=== PATIENT | male | born 1975 | race Caucasian/White ===

== ENCOUNTER 2018-07-21 14:54 | Emergency (ER) | payer OTHER ==
[2018-07-21] MEDS: ASPIRIN 81 MG TAB PO (15:29)
[2018-07-21 15:47] LABS: ADD MAN DIFF? NO; BASOPHIL # 0.1 10^3/ul (0.0-0.1); BASOPHILS % 0.8 % (0.0-2.0); EOSINOPHILS # 0.1 10^3/ul (0.0-0.5); EOSINOPHILS % 1.6 % (0.0-7.0); HEMATOCRIT 43.1 % (42.0-52.0); HEMOGLOBIN 14.4 g/dl (14.0-18.0); LYMPHOCYTES # 2.2 10^3/ul (0.8-2.9); LYMPHOCYTES % 29.4 % (15.0-51.0); MEAN CORPUSCULAR HEMOGLOBIN 27.9 pg (29.0-33.0); MEAN CORPUSCULAR HGB CONC 33.4 g/dl (32.0-37.0); MEAN CORPUSCULAR VOLUME 83.4 fl (82.0-101.0); MEAN PLATELET VOLUME 9.1 fl (7.4-10.4); MONOCYTE # 0.7 10^3/ul (0.3-0.9); MONOCYTES % 9.1 % (0.0-11.0); NEUTROPHIL # 4.3 10^3/ul (1.6-7.5); PLATELET COUNT 237 10^3/UL (140-415); RED BLOOD COUNT 5.17 10^6/ul (4.70-6.10); RED CELL DISTRIBUTION WIDTH 13.3 % (11.5-14.5)
[2018-07-21 15:47] LABS: WHITE BLOOD COUNT 7.4 10^3/ul (4.8-10.8)
[2018-07-21 16:06] LABS: ANION GAP 8 (5-13); BLOOD UREA NITROGEN 15 mg/dl (7-20); CALCIUM 9.6 mg/dl (8.4-10.2); CARBON DIOXIDE 27 mmol/L (21-31); CHLORIDE 106 mmol/L (97-110); CREATININE 1.03 mg/dl (0.61-1.24); Estimated GFR > 60 mL/min (>60); GLUCOSE 92 mg/dl (70-220); POTASSIUM 4.2 mmol/L (3.5-5.1); SODIUM 141 mmol/L (135-144)
[2018-07-21 16:08] LABS: CREATINE KINASE 101 IU/L (23-200)
[2018-07-21 16:17] LABS: TROPONIN-I < 0.012 ng/ml (0.000-0.120)
[2018-07-21 16:21] LABS: CK INDEX 0.8; CK-MB 0.78 ng/ml (0.0-2.4); TROPONIN-I < 0.012 ng/ml (0.000-0.120)
== END 2018-07-21 16:34 | disposition home or self-care (01) ==
LOC: E/R 14:54
DX: R07.9 Chest pain, unspecified (principal); Z79.82 Long term (current) use of aspirin; Z87.891 Personal history of nicotine dependence
CPT/HCPCS: 36415; 71045; 80048; 82550; 82553; 84484; 85025; 93005; 99285-25